=== PATIENT | male | born 1990 | race Caucasian/White ===

== ENCOUNTER 2023-12-22 18:41 | Emergency (ER) | payer BC ==
[2023-12-22] MEDS: Ketorolac 60 MG/2 ML SDV IM ONE (21:34)
[2023-12-22 22:57] VITALS: BP 108/77; PULSE 68
== END 2023-12-22 22:15 | disposition home or self-care (01) ==
LOC: JD.ED 18:41
DX: M54.12 Radiculopathy, cervical region (principal)
CPT/HCPCS: 72125; 72125-26; 96372; 99283; J1885

== ENCOUNTER 2024-06-19 19:14 | Emergency (ER) | payer BC ==
[2024-06-19 20:29] VITALS: BP 128/87; PULSE 61
[2024-06-19 23:08] LABS: BASOPHILS ABSOLUTE AUTO 0.1 K/mm3 (0.0-0.2); BASOPHILS PERCENT AUTO 0.7 % (0.0-1.0); EOSINOPHILS ABSOLUTE AUTO 0.4 K/mm3 (0.0-0.4); HEMATOCRIT 45.7 % (42.0-52.0); HEMOGLOBIN 15.9 gm/dl (14.0-18.0); IMMATURE GRAN ABSOLUTE AUTO 0.03 K/mm3 (0.00-0.05); IMMATURE GRAN PERCENT AUTO 0.3 % (0.0-0.4); LYMPHOCYTES ABSOLUTE AUTO 1.9 K/mm3 (1.0-4.8); LYMPHOCYTES PERCENT AUTO 20.1 % (24.0-44.0); MEAN CORPUSCULAR HEMOGLOBIN 29.9 pg (28.0-32.0); MEAN CORPUSCULAR HGB CONC 34.8 g/dl (32.0-36.0); MEAN CORPUSCULAR VOLUME 86.1 fl (83.0-99.0); MEAN PLATELET VOLUME 10.8 fl (9.4-12.4); MONOCYTES ABSOLUTE AUTO 1.3 K/mm3 (0.0-0.8); MONOCYTES PERCENT AUTO 12.9 % (0.0-8.0); PLATELET COUNT,PLT 203 K/mm3 (150-400); RED BLOOD CELL COUNT 5.31 M/mm3 (4.52-5.90); WHITE BLOOD CELL COUNT,WBC 9.67 K/mm3 (3.9-11.3)
[2024-06-19] MEDS: Iopamidol 612 MG/ML 100 ML Bottle IVPUSH ONE (23:22)
[2024-06-19 23:30] LABS: A/G RATIO 1.1 (1-2); ANION GAP 10.6 (5-15); BILIRUBIN TOTAL 0.9 mg/dL (0.2-1.0); BUN/CREATININE RATIO 5.8 (14-18); CREATININE 1.2 mg/dL (0.7-1.3); EST CRCL DRUG DOSING (CG) 98.03 mL/min; PROTEIN TOTAL,TP 7.8 g/dl (6.4-8.2)
[2024-06-19 23:35] LABS: POTASSIUM,K 3.6 mEq/L (3.5-5.1)
[2024-06-19 23:40] LABS: LACTIC ACID 0.6 mmol/L (0.4-2.0)
[2024-06-20] MEDS: cefTRIAXone 1 GM Vial IVPUSH ONE (00:50)
[2024-06-20] MEDS: Sodium Chloride 0.9% 10 ML Syringe FLUSH PRN (01:09)
== END 2024-06-20 01:02 | disposition home or self-care (01) ==
LOC: JD.ED 19:14
DX: R59.0 Localized enlarged lymph nodes (principal); Z86.16 Personal history of COVID-19; Z79.899 Other long term (current) drug therapy
CPT/HCPCS: 36415; 74177; 76870; 80053; 83605; 85025; 93975; 96374; 99284; J0696; Q9967

== ENCOUNTER 2025-04-25 11:09 | Emergency (ER) | payer SELFPAY ==
[2025-04-25 13:02] VITALS: BP 125/71; PULSE 67
== END 2025-04-25 13:02 | disposition home or self-care (01) ==
LOC: JD.ED 11:09
DX: R09.A2 Foreign body sensation, throat (principal); F17.200 Nicotine dependence, unspecified, uncomplicated; J45.909 Unspecified asthma, uncomplicated; Z86.16 Personal history of COVID-19; Z88.8 Allergy status to other drugs, medicaments and biological substances; Z91.018 Allergy to other foods
CPT/HCPCS: 71046; 71046-26; 99283